=== PATIENT | male | born 1955 | race Native Hawaiian/Other Pacific Islander ===

== ENCOUNTER 2021-06-18 12:38 | Outpatient (CLI) | payer OTHER ==
[2021-06-18 13:42] LABS: POTASSIUM 4.2 mmol/L (3.6-5.2)
== END 2021-06-18 19:31 | disposition home or self-care (01) ==
LOC: LABW 12:38
PROVIDERS: ATTEND Nurse Practitioner Family
DX: M79.671 Pain in right foot (principal)
CPT/HCPCS: 36415; 80053; 84550; 85652

== ENCOUNTER 2021-11-26 17:31 | Outpatient (CLI) | payer OTHER ==
[2021-11-26 17:53] LABS: PLATELET COUNT 278 K/uL (142-355)
[2021-11-26 18:19] LABS: POTASSIUM 4.6 mmol/L (3.6-5.2)
== END 2021-11-26 18:57 | disposition home or self-care (01) ==
LOC: LAB 17:31
PROVIDERS: ATTEND Nurse Practitioner Family
DX: M25.50 Pain in unspecified joint (principal)
CPT/HCPCS: 80053; 82550; 82553; 85027